=== PATIENT | male | born 1980 | race Two or more races ===

== ENCOUNTER 2019-06-24 16:59 | Emergency (ER) | payer MEDICAID, OTHER ==
[~2019-06-24] VITALS: Ht 167.6 cm; Wt 81.6 kg
[2019-06-24 17:10] VITALS: BP 157/97
[2019-06-24] MEDS ORDERED: HYDROcodone-ACET 10/325MG TAB PO ONE (19:00)
[2019-06-24] MEDS ORDERED: BACLOFEN 10 MG TAB PO ONE (19:00)
== END 2019-06-24 20:09 | disposition home or self-care (01) ==
LOC: ER 16:59
DX: M25.512 Pain in left shoulder (principal)
CPT/HCPCS: 73200; 93005

== ENCOUNTER 2020-09-11 04:19 | Emergency (ER) | payer SELFPAY ==
[~2020-09-11] VITALS: Ht 167.6 cm; Wt 83.9 kg
[2020-09-11 07:43] VITALS: BP 148/99
== END 2020-09-11 07:59 | disposition home or self-care (01) ==
LOC: ER 04:19
DX: L03.211 Cellulitis of face (principal)

== ENCOUNTER 2021-04-23 00:35 | Emergency (ER) | payer MEDICAID ==
[~2021-04-23] VITALS: Ht 167.6 cm; Wt 81.6 kg
[2021-04-23] MEDS ORDERED: traMADol HCL 50 MG TAB PO ONE (02:00)
[2021-04-23 02:30] VITALS: BP 134/80
== END 2021-04-23 04:10 | disposition home or self-care (01) ==
LOC: ER 00:37
DX: S02.2XXA Fracture of nasal bones, initial encounter for closed fracture (principal); Y04.2XXA Assault by strike against or bumped into by another person, initial encounter; Y93.89 Activity, other specified; Y92.89 Other specified places as the place of occurrence of the external cause; Y99.8 Other external cause status
CPT/HCPCS: 70450; 70486; 72125; 73030

== ENCOUNTER 2021-04-25 13:31 | Emergency (ER) | payer MEDICAID ==
[~2021-04-25] VITALS: Ht 167.6 cm; Wt 83.9 kg
[2021-04-25 13:39] VITALS: BP 133/85
[2021-04-25] MEDS ORDERED: cefTRIAXone SOD 1,000 MG VL IM ONE (14:00)
[2021-04-25] MEDS ORDERED: KETOROLAC TROMETH 60MG/2ML VIAL IM ONE (14:00)
== END 2021-04-25 14:45 | disposition home or self-care (01) ==
LOC: ER 13:31
DX: S02.2XXD Fracture of nasal bones, subsequent encounter for fracture with routine healing (principal); R22.0 Localized swelling, mass and lump, head; F12.10 Cannabis abuse, uncomplicated; Z76.0 Encounter for issue of repeat prescription; W51.XXXD Accidental striking against or bumped into by another person, subsequent encounter
CPT/HCPCS: 96372; 99284; J0696; J1885